=== PATIENT | female | born 1965 | race Caucasian/White ===

== ENCOUNTER → 2023-11-16 | Day surgery (SDC) | payer BC ==
[~2023-11-16] MED LIST: ACETAMINOPHEN 1000 MG/100 ML 0 ML IV ONE; ALLERGY RELIEF10 M1 PO; ASPIRIN81 MG PO; ATENOLOL50 MG PO; ATORVASTATIN CA40 MG PO; BACLOFEN10 MG PO; BUPIVACAINE HCL 0.5% INJ 30 ML VIAL INJ ONE; CYMBALTA30 MG PO; FAMOTIDINE 20 MG/2 ML VIAL IV ONE; FENTANYL CITRATE/PF 100MCG/2 ML INJ ONE; HYDROMORPHONE 1MG/1ML INJ ONE; LACTATED RINGER'S 1,000 ML ONE; LIDOCAINE HCL 1% LOCAL INJ 20 ML VIAL ONE; LIDOCAINE HCL 2% LOCAL INJ 5 ML SDV VIAL INJ ONE; LOSARTAN-HCTZ1 EACH PO; METHYLPREDNISOLONE ACETATE 80 MG/ML VIAL ONE; MIDAZOLAM HCL 2 MG/2 ML VIAL ONE; PANTOPRAZOLE SO40 MG PO; PROPOFOL IV EMULSION 10 MG/ML 20 ML VIAL ONE; TIZANIDINE HCL2 MG PO; [UNRECOGNIZED DRUG - OTHER] INH
[2023-11-16 07:23] VITALS: TEMP 98.2
[2023-11-16 07:35] VITALS: BP 154/68; PULSE 70; RESP 16; O2SAT 99
== END | disposition home or self-care (01) ==
LOC: OR 05:10
PROVIDERS: ATTEND Orthopaedic Surgery
DX: M94.251 Chondromalacia, right hip (principal); G47.33 Obstructive sleep apnea (adult) (pediatric); I34.1 Nonrheumatic mitral (valve) prolapse; E78.5 Hyperlipidemia, unspecified; K21.9 Gastro-esophageal reflux disease without esophagitis; N20.0 Calculus of kidney; F17.210 Nicotine dependence, cigarettes, uncomplicated; Z88.6 Allergy status to analgesic agent; Z88.1 Allergy status to other antibiotic agents; Z91.048 Other nonmedicinal substance allergy status; Z01.810 Encounter for preprocedural cardiovascular examination; Z79.82 Long term (current) use of aspirin; Z79.899 Other long term (current) drug therapy
CPT/HCPCS: 20610; 77002; 93005; J1040; J2001 ×2; J2250; J2704; J3010; J7121; 76000; J1170